=== PATIENT | female | born 1990 | race Asian ===

== ENCOUNTER 2018-02-14 16:17 | Emergency (ER) | payer SELFPAY ==
--- NOTE | 2018-02-14 17:13 | ED ---
Lower Extremity - HPI Summary HPI Summary: Pt. presenting to the ER for re-evaluation of left foot injury. Pt. is from [facility] and has been the [place] with a [employer] exchange program. Pt. states they were visiting [facility] over the weekend. She states she was getting on a bus when she tripped and injured her left foot. She states she was taken by ambulance to a nearby ER where she had xrays. She states xrays were negative for fracture and she was dx with a ligament tear. Acewrap was placed. Pt. states today someone accidentally stepped on her toes of left foot and she presents to ER for re- evaluation. She states pain to toes has resolved and that she is not having increased foot pain since new injury. Symptoms are minimal in severity. Walking makes symptoms worse. Rest makes symptoms better. Notes intermittent foot tingling when wearing acewrap. She states she returns home to [facility] next week. - History of Current Complaint Chief Complaint: EDExtremityLower Stated Complaint: LT FT INJURY Time Seen by Provider: 02/14/18 16:47 Hx Obtained From: Patient Pain Intensity: 5 - Allergies/Home Medications Allergies/Adverse Reactions: Allergies Allergy/AdvReac Type Severity Reaction Status Date / Time No Known Allergies Allergy Verified 02/14/18 16:37 Home Medications: Home Medications NK [No Home Medications Reported] 02/14/18 [History Confirmed 02/14/18] PMH/Surg Hx/FS Hx/Imm Hx Infectious Disease History: No Infectious Disease History: Denies: Traveled Outside the [place] in Last 30 Days - Social History Alcohol Use: Rare Substance Use Type: Reports: None Smoking Status (MU): Never Smoked Tobacco Review of Systems Positive: Other - Left foot swelling and bruising Positive: Paresthesia - intermittent All Other Systems Reviewed And Are Negative: Yes Physical Exam Triage Information Reviewed: Yes Vital Signs On Initial Exam: Initial Vitals Temp Pulse Resp BP Pulse Ox 97.8 F 64 11 127/92 100 02/14/18 16:32 02/14/18 16:32 02/14/18 16:32 02/14/18 16:32 02/14/18 16:32 Vital Signs Reviewed: Yes Appearance: Positive: Well-Appearing - Pt. sitting on bed in NAD. Program staff present. Skin: Positive: Warm, Dry Head/Face: Positive: Normal Head/Face Inspection Eyes: Positive: Normal Musculoskeletal: Positive: Other - Mild edema, ecchymosis and pain to the lateral aspect of the left foot. No phalanx pain. No proximal ankle or knee pain. Achilles tendon intact. No wounds. Good pulse. Neurological: Positive: Normal, CN Intact II-III Psychiatric: Positive: Affect/Mood Appropriate Diagnostics - Vital Signs Vital Signs Temp Pulse Resp BP Pulse Ox 02/14/18 16:32 97.8 F 64 11 127/92 100 - Laboratory Lab Statement: Any lab studies that have been ordered have been reviewed, and results considered in the medical decision making process. Lower Extremity Course/Dx - Course Course Of Treatment: Pt. presenting for re-evaluation of left foot injury. She does not want repeat xray after new injury today. Post op shoe placed for comfort. Advised pt. ice and elevate. NSAIDS for pain as directed. Advised her to f.u with an orthopedic doctor when she returns to [facility]. Pt. understands and agrees with plan. - Diagnoses Differential Diagnosis/HQI/PQRI: Positive: Contusion, Fracture (Closed), Sprain , Strain, Tendonitis Provider Diagnoses: Foot sprain Discharge - Sign-Out/Discharge Documenting (check all that apply): Discharge/Admit/Transfer - Discharge Plan Condition: Good Disposition: HOME Patient Education Materials: Foot Sprain (ED) Referrals: No Primary Care Phys,NOPCP [Primary Care Provider] - Additional Instructions: Schedule an appointment with an orthopedic doctor when your return home Wear splint for comfort Activity as tolerated Ice and elevate intermittently Ibuprofen for pain as directed - Billing Disposition and Condition Condition: GOOD Disposition: Home
[2018-02-14 17:18] VITALS: BP 119/88
== END 2018-02-14 17:17 | disposition home or self-care (01) ==
LOC: ED 16:17
DX: S93.602A Unspecified sprain of left foot, initial encounter (principal); W50.0XXA Accidental hit or strike by another person, initial encounter; Y92.9 Unspecified place or not applicable
CPT/HCPCS: 99282